=== PATIENT | female | born 1975 | race American Indian/Alaskan Native ===

== ENCOUNTER 2018-12-02 17:04 | Emergency (ER) | payer OTHER ==
[2018-12-02 17:23] VITALS: BP 137/66
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
--- NOTE | 2018-12-02 18:45 | XRay Report ---
PROCEDURE: XR SPINE CERVICAL 2-3V TECHNIQUE: Cervical spine, 4 views HISTORY: posterior neck pain COMPARISONS: None available FINDINGS: The vertebral body heights and alignment are maintained. The prevertebral soft tissues are within nor mal limits in thickness. Odontoid process is intact. IMPRESSION: No acute osseous abnormality is identified. This document is electronically signed by Gail Hayes MD., December 02 2018 06:43:39 PM ET
--- NOTE | 2018-12-02 18:45 | XRay Report ---
PROCEDURE: XR SPINE THORACIC 2V TECHNIQUE: Thoracic spine, AP and lateral views HISTORY: back pain COMPARISONS: None FINDINGS: No scoliosis. Vertebral body heights and alignment are maintained. Disc spaces are preserved. IMPRESSION: No acute osseous abnormality is seen. This document is electronically signed by Gail Hayes MD., December 02 2018 06:42:51 PM ET
[2018-12-02] MEDS ORDERED: TORADOL IM ONE (19:44)
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
== END 2018-12-02 20:16 | disposition home or self-care (01) ==
LOC: ED 17:04
DX: S16.1XXA Strain of muscle, fascia and tendon at neck level, initial encounter (principal); S39.012A Strain of muscle, fascia and tendon of lower back, initial encounter; V89.2XXA Person injured in unspecified motor-vehicle accident, traffic, initial encounter; Y93.89 Activity, other specified; Y92.488 Other paved roadways as the place of occurrence of the external cause; Y99.8 Other external cause status
CPT/HCPCS: 72040; 72070; 96372; 99283; J1885